=== PATIENT | female | born 1950 | race Two or more races ===

== ENCOUNTER 2017-03-07 11:59 | Observation (INO) | payer OTHER, MEDICAID ==
--- NOTE | 2017-03-07 12:58 | EDPHY ---
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 The patient did have a fever yesterday to 100 degrees. She has no complaints of an acute cough. She denies dysuria. The patient denies significant abdominal pain. The patient did fall onto her left hip yesterday but has been ambulatory. The patient has been taking her regular medications which seem to include Neulasta. The patient is under the care of Dr. Jefry Ferris from [facility]. REVIEW OF SYSTEMS: A comprehensive 10 point review of systems is otherwise negative aside from elements mentioned in the history of present illness. Source: Patient Exam Limitations: No limitations - Personal History Current Tetanus Diphtheria and Acellular Pertussis (TDAP): Unsure - Medical/Surgical History Hx Asthma: No Hx Chronic Respiratory Disease: Yes Hx Diabetes: Yes Hx Cardiac Disease: No Hx Renal Disease: No Hx Cirrhosis: No Hx Alcoholism: No Hx HIV/AIDS: No Hx Splenectomy or Spleen Trauma: No Other PMH: Stage 4 lung cancer. DM2. - Social History Smoking Status: Heavy smoker - Physical Exam Exam: General Appearance: Thin female, cachectic, no acute distress Eyes: Pupils equal and round no pallor or injection Head: Normocephalic atraumatic, old surgical incision clean dry and intact ENT, Mouth: Mucous membranes moist Respiratory: There are no retractions, lungs are clear to auscultation Cardiovascular: Tachycardic Gastrointestinal: Abdomen is soft and nontender, no masses, bowel sounds normal Neurological: A&O, normal motor function, normal sensory exam, normal cranial nerves Skin: Warm and dry, no rashes Musculoskeletal: Neck is supple nontender Extremities: Tenderness over left the proximal thigh without decreased range of motion Constitutional: Initial Vital Signs Temperature (C) 36.7 C 03/07/17 12:01 Heart Rate 105 H 03/07/17 12:01 Respiratory Rate 22 H 03/07/17 12:01 Blood Pressure 99/63 L 03/07/17 12:01 O2 Sat (%) 95 03/07/17 12:01 O2 Delivery Mode Room Air Allergies/Adverse Reactions: No Known Allergies Allergy (Unverified 03/07/17 12:05) Home Medications: Medication Instructions Recorded Acetaminophen [Tylenol 325mg (*)] 650 mg PO Q6 PRN 03/07/17 Atorvastatin Calcium [Lipitor 10 10 mg PO DAILY 03/07/17 mg (*)] Benzonatate [Tessalon Pearles (RX)] 100 mg PO TID 03/07/17 Cholecalciferol Vit D3 [Vitamin D3 2,000 units PO DAILY 03/07/17 (*)] Dextromethorphan HBr [Robitussin] 15 mg PO DAILY 03/07/17 Insulin Detemir [Levemir] 10 units SQ DAILY 03/07/17 Insulin Detemir [Levemir] 11 units SQ HS 03/07/17 LEVETIRACETAM [Keppra 750 mg] 750 mg PO BID 03/07/17 Methylphenidate HCl [Ritalin 5mg 5 mg PO DAILY 03/07/17 (*)] Mirtazapine [Remeron] 7.5 mg PO HS 03/07/17 Potassium Chloride Po [Klor 20 meq PO DAILY 03/07/17 Packets 20 meq (*)] Prochlorperazine Maleate 10 mg PO Q6 PRN 03/07/17 [Compazine 10mg (*)] metFORMIN HCL [Glucophage 500 mg 500 mg PO BIDMEAL 03/07/17 (*)] Medical Decision Making - Diagnostics Imaging Results: Imaging Impressions Head CT 03/07/17 13:05 Impression: 1. No acute intracranial findings 2. Limited visualization of known left temporal metastasis without significant mass effect. 3. Additional findings as above. ED Course/Re-evaluation: The patient presents to the ED with increasing weakness, confusion and decreased appetite. The patient does appear to be quite dehydrated upon arrival. She had an IV established. She received a L of normal saline. The patient was taken for a stat noncontrast head CT scan which demonstrates no evidence of intracranial hemorrhage. Her FRUIT OR NUT FARMER metastases appear relatively stable when compared to prior MRI imaging. The patient presents to the ED with global weakness confusion and dehydration. She has been falling at home. I do believe she should be admitted to the hospital for IV fluid rehydration. Consultation was made with the hospitalist service. The patient will be admitted by Dr. Moris Armijo. I re-evaluated the patient at 2:05 p.m.. She is comfortable with the plan for admission. Differential Diagnosis: Differential diagnosis considered includes dehydration, metabolic abnormality, intracranial hemorrhage, worsening FRUIT OR NUT FARMER metastatic disease, urinary tract infection - Data Points Laboratory Results: Laboratory Results 03/07/17 12:20 03/07/17 12:20 03/07/17 03/07/17 03/07/17 13:47 12:20 12:20 WBC 5.76 10^3/uL 10^3/uL (3.80-9.50) RBC 3.61 10^6/uL L 10^6/uL (4.18-5.33) Hgb 10.9 g/dL L g/dL (12.6-16.3) Hct 32.2 % L % (38.0-47.0) MCV 89.2 fL fL (81.5-99.8) MCH 30.2 pg pg (27.9-34.1) MCHC 33.9 g/dL g/dL (32.4-36.7) RDW 13.2 % % (11.5-15.2) Plt Count 199 10^3/uL 10^3/uL (150-400) MPV 9.7 fL fL (8.7-11.7) Neut % (Auto) 63.9 % % (39.3-74.2) Lymph % (Auto) 18.2 % % (15.0-45.0) [place] % (Auto) 14.6 % H % (4.5-13.0) Eos % (Auto) 1.7 % % (0.6-7.6) Baso % (Auto) 0.9 % % (0.3-1.7) Nucleat RBC Rel Count 0.0 % % (0.0-0.2) Absolute Neuts (auto) 3.68 10^3/uL 10^3/uL (1.70-6.50) Absolute Lymphs (auto) 1.05 10^3/uL 10^3/uL (1.00-3.00) Absolute Monos (auto) 0.84 10^3/uL H 10^3/uL (0.30-0.80) Absolute Eos (auto) 0.10 10^3/uL 10^3/uL (0.03-0.40) Absolute Basos (auto) 0.05 10^3/uL 10^3/uL (0.02-0.10) Absolute Nucleated RBC 0.00 10^3/uL 10^3/uL (0-0.01) Immature Gran % 0.7 % % (0.0-1.1) Immature Gran # 0.04 10^3/uL 10^3/uL (0.00-0.10) Sodium 126 mEq/L L mEq/L (134-144) Potassium 4.2 mEq/L mEq/L (3.5-5.2) Chloride 94 mEq/L L mEq/L (97-110) Carbon Dioxide 19 mEq/l L mEq/l (22-31) Anion Gap 13 mEq/L mEq/L (8-16) BUN 14 mg/dL mg/dL (7-23) Creatinine 0.6 mg/dL mg/dL (0.6-1.0) Estimated GFR > 60 Glucose 133 mg/dL H mg/dL (70-100) Calcium 8.9 mg/dL mg/dL (8.5-10.4) Urine Color YELLOW Urine Appearance HAZY Urine pH 6.0 (5.0-7.5) Ur Specific [place] 1.008 (1.002-1.030) Urine Protein NEGATIVE (NEGATIVE) Urine Ketones NEGATIVE (NEGATIVE) Urine Blood NEGATIVE (NEGATIVE) Urine Nitrate NEGATIVE (NEGATIVE) Urine Bilirubin NEGATIVE (NEGATIVE) Urine Urobilinogen 2.0 EU H EU (0.2-1.0) Ur Leukocyte Esterase NEGATIVE (NEGATIVE) Urine Glucose NEGATIVE (NEGATIVE) Medications Given: Discontinued Medications Sodium Chloride (Ns) 1,000 mls @ 0 mls/hr IV EDNOW ONE; Wide Open PRN Reason: Protocol Stop: 03/07/17 13:06 Last Admin: 03/07/17 13:15 Dose: 1,000 mls Departure - Departure Disposition: [facility] Acute Clinical Impression: Lung cancer metastatic to brain, Dehydration Condition: Fair
[2017-03-07 13:04] LABS: % IMMATURE GRANULYOCYTES 0.7 % (0.0-1.1); ABSOLUTE IMMATURE GRANULOCYTES 0.04 10^3/uL (0.00-0.10); ADD DIFF? NO; ADD MORPH? NO; ADD SCAN? NO; ATYPICAL LYMPHOCYTE FLAG 0 (0-99); FRAGMENT RBC FLAG 0 (0-99); HEMATOCRIT 32.2 % (38.0-47.0); HEMOGLOBIN 10.9 g/dL (12.6-16.3); LEFT SHIFT FLG 20 (0-99); LIPEMIA HEMOLYSIS FLAG 90 (0-99); MEAN CELL HEMOGLOBIN 30.2 pg (27.9-34.1); MEAN CELL HEMOGLOBIN CONCENTR. 33.9 g/dL (32.4-36.7); MEAN CELL VOLUME 89.2 fL (81.5-99.8); MEAN PLATELET VOLUME 9.7 fL (8.7-11.7); PLATELET CLUMPS FLAG 0 (0-99); PLATELET COUNT 199 10^3/uL (150-400); RED BLOOD CELL COUNT 3.61 10^6/uL (4.18-5.33); RED CELL DISTRIBUTION WIDTH 13.2 % (11.5-15.2)
[2017-03-07] MEDS ORDERED: NS 1,000 ML IV ONE (13:05)
[2017-03-07 13:21] LABS: ANION GAP 13 mEq/L (8-16); CALCIUM 8.9 mg/dL (8.5-10.4); CARBON DIOXIDE 19 mEq/l (22-31); CHLORIDE 94 mEq/L (97-110); CREATININE 0.6 mg/dL (0.6-1.0); GLOMERULAR FILTRATION RATE > 60; GLUCOSE 133 mg/dL (70-100); POTASSIUM 4.2 mEq/L (3.5-5.2); SODIUM 126 mEq/L (134-144)
--- NOTE | 2017-03-07 13:43 | ASMTCASEMG ---
Living Arrangements What is your living Answers: Alone arrangement? Who do you live with? Type Of Residence What kind of residence do Answers: House you live in? Discharge Plan Comments Coordination Status Comments Notes: Pt is a 66 y/o female admitted for weakness, dizziness, decreased appetite, and confusion for the last 2 days. Pt has a hx of stage IV lung cancer. Pt received full brain radiation on 02/22/17. Pt will be transferred to when medically stable. Needs are TBD at this time. CM to follow. Plan: TBD Date Signed: 03/07/2017 01:42 PM Electronically Signed By:CARLIN Solomon
[2017-03-07 14:15] LABS: COLOR YELLOW; LEUKOCYTE ESTERASE,URINE NEGATIVE (NEGATIVE); NITRITE,URINE NEGATIVE (NEGATIVE)
[2017-03-07] MEDS ORDERED: ONDANSETRON DISINTEGRATING 4 MG TAB PO PRN (16:59)
[2017-03-07] MEDS ORDERED: oxyCODONE IR 5 MG TAB PO PRN (16:59)
[2017-03-07] MEDS ORDERED: ONDANSETRON 4 MG/2 ML VIAL IVP PRN (16:59)
[2017-03-07] MEDS ORDERED: LR 1,000 ML IV SCH ×2 (17:00→23:00)
[2017-03-07] MEDS ORDERED: ACETAMINOPHEN 325 MG TAB PO PRN (17:03)
[2017-03-07] MEDS ORDERED: PROCHLORPERAZINE MALEATE 10 MG TAB PO PRN (17:03)
[2017-03-07] MEDS ORDERED: D50W 25 GM/50 ML SYR IVP PRN (17:05)
--- NOTE | 2017-03-07 17:37 | GHP ---
[f rep st] HISTORY AND PHYSICAL DATE OF ADMISSION: 03/07/2017 CHIEF COMPLAINT: Weakness. HISTORY OF PRESENT ILLNESS: This 66-year-old female with stage IV lung cancer with metastatic diseas e to brain, who presents with weakness. This started a few days ago. Describes her both legs being very weak. She has been hallucinating. She has not been eating very well. She tells me that the fo od does not taste very good. She has a chronic cough but no change in these symptoms. She may have had a fever a few days ago. She has not received any chemotherapy for her cancer however she is on s ome immunosuppressant, however she does not remember the name. She had intracranial mets resected. PAST MEDICAL/SURGICAL HISTORY: 1. Stage IV lung cancer diagnosed in September of this year, followed by Dr. Ferris with brain mets sta tus post resection. She has received XRT to her head. 2. Diabetes mellitus on insulin. 3. Hyperlipidemia. MEDICATIONS: Please see medication reconciliation. ALLERGIES: No known drug allergies. SOCIAL HISTORY: She lives with her daughter. She walks with a walker. She quit smoking today. FAMILY HISTORY: Reviewed noncontributory. REVIEW OF SYSTEMS: A 10-point review of systems is conducted and is negative except per HPI. PHYSICAL EXAM: VITAL SIGNS: Blood pressure 102/55, heart rate 88, respiration rate 16, saturating 9 3% on room air. Temperature is 37.8. GENERAL: The patient is a pleasant female who looks somewhat uncomfortable lying in bed. No acute distress. HEENT: Shows her to be normocephalic, atraumatic. CARDIOVASCULAR: Shows regular rate and rhythm. No murmurs, rubs, or gallops. PULMONARY: Shows dis tant S1 and S2. Put her lungs are clear bilaterally. ABDOMEN: Shows her to be soft, nontender, non distended. SKIN: Shows no rash. : Shows no Sung. NEUROLOGIC: Shows her to be alert and orient ed x3. She is moving all extremities. She has a nonfocal neurologic exam. PSYCHIATRIC: Shows norm al mood and affect. LABS: White count is 5, hemoglobin 10. Sodium is 126, bicarb was 19. Urinalysis shows 2+ bilinogen . DATA: 1. I reviewed her head CT. This shows nothing acute. Does not seem to be any significant change in her intracranial mets. 2. Reviewed chart including Dr. Blount note. IMPRESSION/PLAN: This is a 66-year-old female, presents with likely dehydration. 1. Weakness/hallucinations: I think that this is probably dehydration. I do not think she has any focal neurologic deficits to indicate a new stroke. CT does not show change of her metastatic diseas e. I note that she is borderline febrile. Urinalysis is negative. I do not think she has pneumonia on my exam, though her auscultation is difficult. Will send blood cultures and chest x-ray to look for an infection, though I will not start empiric antibiotics. We will treat dehydration and hyponat remia and follow. 2. Dehydration: Will run lactated Ringer's overnight. Follow her strength in the morning. 3. Hyponatremia: Suspect hypovolemic though she is at risk for syndrome of inappropriate antidiuret ic hormone. We will run lactated Ringer's, send urine osmolality and recheck her sodium in the [facility] ng. 4. Stage IV lung cancer with metastatic disease to brain: If she converts to inpatient would recomm end letting Oncology know that she is in the hospital. She has not received any chemotherapy. 5. Diabetes mellitus: We will follow her blood sugars and continue her home insulin for now. 6. Hyperlipidemia: Atorvastatin. 7. Poor p.o. intake: I see that she is already on Remeron and methylphenidate, which I suspect is t o stimulate her appetite. I have ordered a dietary consult. 8. Intracranial metastasis: She is on Keppra. I will continue this. CODE STATUS: She would like to be do not resuscitate. I discussed clearly with this means with her and she understands. VENOUS THROMBOEMBOLISM RISK: She is moderate. We will place her on sequential compression devices f or now. If she has a prolonged hospitalization consider pharmacologic therapy. /[id number]/MODL
[2017-03-07] MEDS ORDERED: INSULIN GLARGINE 100 UNITS/ML SYRINGE SC SCH (21:00)
[2017-03-07] MEDS ORDERED: MIRTAZAPINE 15 MG TAB PO SCH (21:00)
[2017-03-07] MEDS: BENZONATATE 100 MG CAP PO SCH (21:28)
[2017-03-07] MEDS: NYSTATIN SUSP 500000 UNIT/5 ML UDCUP PO SCH (21:28)
[2017-03-07] MEDS: levETIRAcetam 250 MG TAB PO SCH (21:28)
[2017-03-07] MEDS: ACETAMINOPHEN 325 MG TAB PO PRN (21:34)
[2017-03-07 23:28] LABS: PCO2 VENOUS 33 mmHg (40-44); PH VENOUS BLOOD 7.45 (7.31-7.42); PO2 VENOUS 36 mmHg (35-40); TCO2 VENOUS 23 mEq/L (23-27); VEN MEASURED OXYGEN SATURATION 68 % (65-75)
[2017-03-07 23:30] LABS: HEMATOCRIT 28.3 % (38.0-47.0); HEMOGLOBIN 9.8 g/dL (12.6-16.3)
[2017-03-07] MEDS ORDERED: LR 500 ML IV ONE (23:30)
[2017-03-07] MEDS: CEFEPIME HCL 1 GM in D5W 50 ML IV SCH (23:34)
[2017-03-07 23:39] LABS: ANION GAP 9 mEq/L (8-16); CALCIUM 8.1 mg/dL (8.5-10.4); CARBON DIOXIDE 21 mEq/l (22-31); CHLORIDE 98 mEq/L (97-110); CREATININE 0.5 mg/dL (0.6-1.0); GLOMERULAR FILTRATION RATE > 60; GLUCOSE 111 mg/dL (70-100); SODIUM 128 mEq/L (134-144)
[2017-03-08] MEDS: NYSTATIN SUSP 500000 UNIT/5 ML UDCUP PO SCH ×2 (05:02→12:06)
[2017-03-08 05:47] LABS: % IMMATURE GRANULYOCYTES 0.4 % (0.0-1.1); ABSOLUTE IMMATURE GRANULOCYTES 0.02 10^3/uL (0.00-0.10); ADD DIFF? NO; ADD MORPH? NO; ADD SCAN? NO; ATYPICAL LYMPHOCYTE FLAG 70 (0-99); FRAGMENT RBC FLAG 0 (0-99); HEMATOCRIT 31.8 % (38.0-47.0); HEMOGLOBIN 10.3 g/dL (12.6-16.3); LEFT SHIFT FLG 20 (0-99); LIPEMIA HEMOLYSIS FLAG 80 (0-99); MEAN CELL HEMOGLOBIN 30.1 pg (27.9-34.1); MEAN CELL HEMOGLOBIN CONCENTR. 32.4 g/dL (32.4-36.7); MEAN PLATELET VOLUME 10.3 fL (8.7-11.7); PLATELET CLUMPS FLAG 40 (0-99); PLATELET COUNT 163 10^3/uL (150-400); RED BLOOD CELL COUNT 3.42 10^6/uL (4.18-5.33); RED CELL DISTRIBUTION WIDTH 13.3 % (11.5-15.2)
[2017-03-08 05:51] LABS: ALANINE AMINOTRANSFERASE 34 IU/L (9-52); ALBUMIN 2.7 g/dL (3.5-5.0); ALKALINE PHOSPHATASE 56 IU/L (38-126); ANION GAP 9 mEq/L (8-16); ASPARTATE AMINOTRANSFERASE 37 IU/L (14-46); BILIRUBIN,TOTAL 0.3 mg/dL (0.1-1.4); CALCIUM 8.3 mg/dL (8.5-10.4); CARBON DIOXIDE 24 mEq/l (22-31); CHLORIDE 104 mEq/L (97-110); CREATININE 0.5 mg/dL (0.6-1.0); GLOMERULAR FILTRATION RATE > 60; GLUCOSE 126 mg/dL (70-100); SODIUM 137 mEq/L (134-144); TOTAL PROTEIN 5.5 g/dL (6.3-8.2)
[2017-03-08] MEDS ORDERED: DEXTROMETHORPHAN HBR 15 MG PO SCH (09:00)
[2017-03-08] MEDS ORDERED: POTASSIUM CL 20 MEQ PKT PO SCH (09:00)
[2017-03-08] MEDS ORDERED: INSULIN GLARGINE 100 UNITS/ML SYRINGE SC SCH (09:00)
[2017-03-08] MEDS ORDERED: ATORVASTATIN CALCIUM 10 MG TAB PO SCH (09:00)
[2017-03-08] MEDS: levETIRAcetam 250 MG TAB PO SCH (09:20)
[2017-03-08] MEDS: BENZONATATE 100 MG CAP PO SCH (09:21)
[2017-03-08] MEDS: CEFEPIME HCL 1 GM in D5W 50 ML IV SCH (09:22)
[2017-03-08 11:50] VITALS: BP 102/67; PULSE 99; RESP 17; TEMP 98.5; O2SAT 95
[2017-03-08] MEDS: ACETAMINOPHEN 325 MG TAB PO PRN (12:05)
--- NOTE | 2017-03-08 15:36 | PDDCSUM ---
Discharge Summary Discharge Summary: DISCHARGE SUMMARY FOLLOW-UP ITEMS: Repeat creatinine BUN and lytes next week, then weekly thereafter DATE OF ADMISSION: 03/07/2017 DATE OF DISCHARGE: 03/08/2017 DISCHARGE DIAGNOSES: 1. Acute generalized weakness 2. Acute hyponatremia 3. Stage IV lung cancer 4. Fever 5. Acute hypotension CONSULTATIONS: None PROCEDURES / IMAGING: Head CT demonstrating stable left temporal metastatic malignancy without mass effect Chest x-ray with right upper lobe 8 x 4 cm mass CHIEF COMPLAINT: Acute weakness and unsteadiness SUBJECTIVE: Patient is feeling well at time discharge, she has ambulated the hallways and is stable on her feet PHYSICAL EXAM ON DISCHARGE: Systolic blood pressure 110, heart rate 90, satting well on room air, temperature 36.9degrees, cachectic appearing, alert awake oriented x3, no apparent distress, inspiratory rhonchi right upper posterior segment, otherwise clear LABS ON DISCHARGE: Serum sodium 137, creatinine 0.5, lactic acid normal, liver panel unremarkable, urine sodium 46, white blood cell count 4600, hemoglobin 10.3 HOSPITAL COURSE BY PROBLEM: The patient presented with acute generalized weakness most likely secondary to hypovolemia resulting in hypotension, acute hyponatremia. The patient did not have any evidence of infection, with no pneumonia on chest x-ray, no infection on urinalysis, no localized infectious symptoms, and self-limited intermittent fevers. I suspect the fevers are secondary to her underlying ongoing stage IV lung cancer, as her white blood cell count is normal and she has no other infectious symptomatology. I suspect that her hypotension was secondary to hypovolemia in the setting of poor oral intake at home, which the patient freely admits. Her hypotension resolved with IV fluids, and her lactic acid was normal. She is currently normotensive at time of discharge and she is eating and drinking well. Her serum sodium level is most likely what caused her constellation of symptoms including weakness, unsteadiness, dizziness, and was treated effectively with IV fluids. Given that is most likely a hypovolemic hyponatremia, we recommended increasing her fluid intake as well as her solid intake, and recommended frequent checking of labs as an outpatient. She reports that her poor oral intake has been secondary to mucositis, and we provided her with nystatin liquid, with good effect. DISCHARGE MEDICATIONS: Please see official discharge medication reconciliation sheet in chart , nystatin 100,000 U, q.6 hours, continue other home medications. DISCHARGE INSTRUCTIONS: Please follow up with primary oncologist, and have labs checked weekly.
--- NOTE | 2017-03-08 15:46 | ASMTCMCOM ---
CM Note CM Note Notes: Pt with stage 4 lung ca admitted OBS for dehydration. Pt ready for DC today. Met with pt and dtr. Dtr provides 16/10 care for mother and did not anticipate other needs. Dtr has a loan closet list for some equipment. Discussed community-based palliative care with pt and dtr but they were not interested at this time. Dtr thinks she may have a service like this but didn't know for sure. Date Signed: 03/08/2017 03:46 PM Electronically Signed By:Montserrat Zuniga LCSW
--- NOTE | 2017-03-09 09:52 | ASDISCHSUM ---
Discharge Information Plan Status:Has needs-TBD Medically Cleared to Leave: Discharge Date:03/08/2017 03:50 PM CM D/C Disposition: ADT D/C Disposition:Home, Routine, Self-Care Projected Discharge Date:03/08/2017 03:50 PM Transportation at D/C: Discharge Delay Reason: Follow-Up Date:03/08/2017 03:50 PM Discharge Slot: Final Diagnosis: Placement Information Patient Contact Information Contact Name:ORAL Relationship: Address: Home Phone: Work Phone: City: Alternate Phone: State/[place] Code: Email: Financial Information Financial Class: Primary Plan Desc:MEDICARE OUTPATIENT Primary Plan Number:[id number] Secondary Plan Desc:MEDICAID HEALTH FIRST [employer] RECONDITIONING Secondary Plan Number:[id number] Assessment Information [facility] Initial CM Assessment Living Arrangements What is your living Answers: Alone arrangement? Who do you live with? Type Of Residence What kind of residence do Answers: House you live in? Discharge Plan Comments Coordination Status Comments Notes: Pt is a 66 y/o female admitted for weakness, dizziness, decreased appetite, and confusion for the last 2 days. Pt has a hx of stage IV lung cancer. Pt received full brain radiation on 02/22/17. Pt will be transferred to when medically stable. Needs are TBD at this time. CM to follow. Plan: TBD Date Signed: 03/07/2017 01:42 PM Electronically Signed By:CARLIN Solomon [facility] CM Progress Note CM Note CM Note Notes: Pt with stage 4 lung ca admitted OBS for dehydration. Pt ready for DC today. Met with pt and dtr. Dtr provides 24/7 care for mother and did not anticipate other needs. Dtr has a loan closet list for some equipment. Discussed community-based palliative care with pt and dtr but they were not interested at this time. Dtr thinks she may have a service like this but didn't know for sure. Date Signed: 03/08/2017 03:46 PM Electronically Signed By:Montserrat Zuniga LCSW Intervention Information Intervention Type:*WOODALL-Signed Date of Service:03/08/2017 11:17 AM Patient Type:Observation Staff Member:Neetu Aguiar Hours: Discipline: Severity: Comment:
== END 2017-03-08 15:50 | disposition home or self-care (01) ==
LOC: F1N 17:39
PROVIDERS: ADMIT Student in an Organized Health Care Education/Training Program; ATTEND Internal Medicine
DX: E86.1 Hypovolemia (principal); E87.1 Hypo-osmolality and hyponatremia; I95.9 Hypotension, unspecified; R50.9 Fever, unspecified; C34.90 Malignant neoplasm of unspecified part of unspecified bronchus or lung; C79.31 Secondary malignant neoplasm of brain; F17.210 Nicotine dependence, cigarettes, uncomplicated; E11.9 Type 2 diabetes mellitus without complications; Z79.4 Long term (current) use of insulin; E78.5 Hyperlipidemia, unspecified
CPT/HCPCS: 70450; 71010; 96360; 97161; 99285; G0378; G8978; G8979; G8980; J0692; J1815

== ENCOUNTER → 2017-05-08 | Outpatient (CLI) | payer OTHER, MEDICAID ==
[~2017-05-08] MED LIST: GADOBUTROL 10 ML VIAL IVP ONE
== END ==
LOC: FIMAGING 09:31
PROVIDERS: ATTEND Internal Medicine Hematology & Oncology
DX: C71.2 Malignant neoplasm of temporal lobe (principal); C34.90 Malignant neoplasm of unspecified part of unspecified bronchus or lung; G31.9 Degenerative disease of nervous system, unspecified; J01.90 Acute sinusitis, unspecified
CPT/HCPCS: 70553; A9585